=== PATIENT | female | born 1975 | race Caucasian/White ===

== ENCOUNTER → 2018-12-19 15:36 | Outpatient (CLI) | payer SELFPAY ==
[2017-01-20 06:18] VITALS: BMI 19.5
--- NOTE | 2018-12-19 | EMB_PTH ---
PATIENT: RAINER SANDOVAL LOC: [facility] U#:[id number] AGE/SX: 50/F ROOM: RE12/19/[address]: Dr. Julian Carcamo MD : [id number] BED: DIS: SPEC #: [id number] RECD: 12/19/18 15:35 STATUS: ALEJANDRO RENarciso #: [id number] MI: 12/19/18 00:[address]: Julian Caracmo DEPT: SURGICAL PATHOLOGY RECD BY: Brando Lopez ENTERED: 12/20/18 11:06 SP TYPE: ENDOM BX/C DOUGLAS DR: Dr. Gustavo Tellez MD Tissues: Endometrium, NOS Procedures: Surgery Specimen Level IV HEADER OPERATION: Endometrial biopsy PRE-OP DIAGNOSIS: N92.1 TISSUE SUBMITTED: Endometrial biopsy MICROSCOPIC DIAGNOSIS Endometrial biopsy: Proliferative endometrium. SJ:pam 12/21/18 COMMENT Please make reference to previous specimen ([id number]), endometrial curettings with diagnosis of disordered proliferative endometrium and mild chronic endometritis. MICROSCOPIC DESCRIPTION Slides are reviewed. GROSS DESCRIPTION Received in fixative is one container labeled with the patient's name and designated endometrial biopsy. The specimen consists of multiple irregular fragments of light to dark phillips soft tissue that in aggregate measure 2.6 x 2 x 0.1 cm. The specimen is totally submitted in one cassette. / AM:pam 12/20/18 TC:4 CPT: 88782
[2018-12-24 12:00] LABS: HPV Reflexed? NOT INDICATED
== END ==
PROVIDERS: Referring Provider Obstetrics & Gynecology; Visit Provider Obstetrics & Gynecology
DX: Z12.4 Encounter for screening for malignant neoplasm of cervix (principal); N92.1 Excessive and frequent menstruation with irregular cycle
CPT/HCPCS: 87624; 88175; 88305; G0145

== ENCOUNTER → 2018-12-27 09:17 | Outpatient (CLI) | payer SELFPAY ==
--- NOTE | 2018-12-27 09:23 | BI_ITS ---
MAMMOGRAPHY - BILATERAL DIAGNOSTIC REASON FOR EXAM: Female, 43 years old. Painful right breast lump. PERTINENT HISTORY: Non-contributory. Prior biopsy for the right breast lump. TECHNIQUE: Digital bilateral breast zaida (3D mammographic acquisition) in the CC and MLO projections. 2-D mediolateral oblique (MLO) and craniocaudad (CC) views of both breasts were obtained. CAD: Full Field Digital Mammography with Computer Added Detection was performed. COMPARISON: Comparison is made with prior outside examination dated November 04, 2016. FINDINGS: Breast Composition: The breasts are extremely dense, which lowers the sensitivity of mammography. A tissue clip marker is seen in the mid medial anterior aspect of the right breast. No suspicious mass or microcalcification is seen. No other significant abnormalities are identified. There has been no significant change since the prior study. BI/DIAG MAMM W/CAD, BILAT IMPRESSION: Stable bilateral diagnostic mammogram. With the patient's history of a palpable abnormality in the right breast, correlation with ultrasound is recommended. ASSESSMENT CATEGORY: BIRADS Category 0: Incomplete. Need additional imaging evaluation. A letter regarding these results will be sent to the patient by the facility within 30 days. Approximately 10% of breast cancers are not detected by mammography. A normal mammogram should not delay biopsy of a clinically suspicious abnormality. Electronically Signed: Devan Valentin, at 11:21 EDT , Service support ,
--- NOTE | 2018-12-27 09:24 | US_ITS ---
STUDY: ULTRASOUND BREAST - RIGHT REASON FOR EXAM: Female, 43 years old. Palpable lump in the right breast. TECHNIQUE: Axial and longitudinal images of the RIGHT breast were performed with a high resolution ultrasound transducer. COMPARISON: Comparison is made with prior mammogram done earlier today. FINDINGS: RIGHT Breast: There is a 9 mm x 8 mm x 4 mm hypoechoic solid nodule at the 12:00 position of the breast by 1 cm from the nipple. A tissue clip marker is seen within it. Adjacent to this, there is a 1.3 cm x 1.4 cm x 0.4 cm septated cyst. US/Breast Limited Unilateral IMPRESSION: 1.3 cm x 1.4 cm x 0.4 cm septated cyst at the 12:00 position the breast at 1 cm from nipple. This is just adjacent to the previously biopsied nodule. ASSESSMENT CATEGORY: BIRADS Category 2: Benign. A letter regarding these results will be sent to the patient by the facility within 30 days. Electronically Signed: Devan Valentin, at 11:23 EDT , Service support ,
== END ==
PROVIDERS: Family Provider Family Medicine; PCP Family Medicine; Referring Provider Obstetrics & Gynecology; Visit Provider Obstetrics & Gynecology
DX: N64.4 Mastodynia (principal)
CPT/HCPCS: 76642; 77062; 77066; G0279

== ENCOUNTER → 2019-02-14 12:48 | Outpatient (CLI) | payer SELFPAY ==
[2019-01-30 08:48] VITALS: BMI 20.2
--- NOTE | 2019-02-14 12:52 | ECHOD_ITS ---
Reason For Study: ARRHYTHMIA Procedure This was a 2D Doppler, Color Flow transthoracic echocardiogram. Exam performed in department. Left Ventricle Normal LV size. Left ventricular systolic function is normal. The estimated ejection fraction is 55 %. Normal diastology for age. No regional wall motion abnormalities noted. Right Ventricle Normal RV size. Normal systolic function. Atria Normal left atrium. Normal right atrium. Mitral Valve Normal mitral valve. Trivial eccentric mitral valve insufficiency. Tricuspid Valve Normal tricuspid valve. Mild tricuspid valve insufficiency. Aortic Valve Normal aortic valve. Pulmonic Valve Normal pulmonic valve. Great Vessels Normal aortic root. The pulmonary artery is normal size. Normal inferior vena cava. Pericardium/Pleural No pericardial effusion. MMode/2D Measurements & Calculations LVIDd: 4.5 cm IVSd: 0.56 cm Ao root diam: 2.6 cm LVIDs: 3.2 cm LVPWd: 0.59 cm RVDd: 3.3 cm FS: 27.5 % LAV(MOD-bp): 30.7 ml LVAd ap4: 23.4 cm2 SV(MOD-sp4): 38.2 ml LAV(MOD-bp) Indexed: 20.5 ml/m2 EDV(MOD-sp4): 67.1 ml LAV(MOD-sp2): 20.1 ml EDV(sp4-el): 68.1 ml LAV(MOD-sp4): 39.8 ml LVAs ap4: 14.2 cm2 ESV(MOD-sp4): 28.8 ml ESV(sp4-el): 29.1 ml EF(MOD-sp4): 57.0 % EF(sp4-el): 57.3 % SV(sp4-el): 39.0 ml LA A4 area: 15.1 cm2 LA dimension(2D): 2.9 cm RA A4 area: 12.5 cm2 Time Measurements MV dec time: 0.21 sec Doppler Measurements & Calculations MV E max mil: 91.0 cm/sec Lat Peak E' Mil: 15.8 cm/sec Med Peak E' Mil: 14.3 cm/sec MV A max mil: 51.4 cm/sec E/E' lat: 5.8 E/E' med: 6.4 MV E/A: 1.8 Ao V2 max: 99.9 cm/sec LV V1 max: 92.4 cm/sec PA V2 max: 77.8 cm/sec Ao max P.0 mmHg LV V1 max P.4 mmHg TR max mil: 219.4 cm/sec TR max P.3 mmHg Interpretation Summary Normal LV size. Left ventricular systolic function is normal. The estimated ejection fraction is 55 %. Normal diastology for age. Trivial eccentric mitral valve insufficiency. Ordering Physician: Don Aguero Referring Physician: IVETTE VILLALOBOS Performed By: Glenis Michel, STEPHANIA, RVT
== END ==
PROVIDERS: Family Provider Family Medicine; PCP Family Medicine; Referring Provider Internal Medicine Cardiovascular Disease; Visit Provider Internal Medicine Cardiovascular Disease
DX: I47.1 Supraventricular tachycardia (principal)
CPT/HCPCS: 93225; 93226; 93306

== ENCOUNTER → 2024-01-16 | Outpatient (CLI) | payer SELFPAY ==
--- NOTE | 2024-01-16 10:02 | ECHOD_ITS ---
Reason For Study: SUPRAVENTRICULAR TACHYCARDIA Procedure This was a 2D Doppler, Color Flow transthoracic echocardiogram. Exam performed in department. Left Ventricle Normal LV size. The estimated ejection fraction is 55 %. Unable to assess diastolic dysfunction. No regional wall motion abnormalities noted. Right Ventricle Normal RV size. Normal systolic function. Atria Normal left atrium. Normal right atrium. No doppler evidence for ASD. Mitral Valve There is no mitral valve stenosis. Trivial mitral valve insufficiency. Tricuspid Valve There is no tricuspid stenosis. Trivial tricuspid valve insufficiency. Pulmonary artery systolic pressure is 20 mmHg. Aortic Valve Trisinus/trileaflet aortic valve. There is no aortic stenosis. No aortic valve insufficiency. Pulmonic Valve There is no pulmonic valvular stenosis. No pulmonic valve insufficiency. Great Vessels Normal aortic root. Pericardium/Pleural No pericardial effusion. MMode/2D Measurements & Calculations LVIDd: 4.6 cm IVSd: 0.54 cm LVOT diam: 1.9 cm LVIDs: 2.9 cm LVPWd: 0.58 cm LVOT area: 2.8 cm2 RVDd: 3.1 cm FS: 37.0 % Ao root diam: 2.7 cm LAV(MOD-bp): 35.3 ml LVAd ap4: 21.0 cm2 LAV(MOD-bp) Indexed: 22.6 ml/m2 LVLd ap4: 6.4 cm LAV(MOD-sp2): 44.0 ml EDV(MOD-sp4): 56.1 ml LAV(MOD-sp4): 27.0 ml EDV(sp4-el): 58.2 ml LVAs ap4: 12.4 cm2 LVLs ap4: 5.2 cm ESV(MOD-sp4): 24.2 ml ESV(sp4-el): 25.3 ml EF(MOD-sp4): 56.8 % EF(sp4-el): 56.5 % LVAd ap2: 21.8 cm2 SV(MOD-sp4): 31.9 ml SV(MOD-sp2): 39.0 ml LVLd ap2: 6.7 cm EDV(MOD-sp2): 58.8 ml EDV(sp2-el): 60.1 ml LVAs ap2: 10.9 cm2 LVLs ap2: 5.1 cm ESV(MOD-sp2): 19.8 ml ESV(sp2-el): 19.6 ml EF(MOD-sp2): 66.4 % SV(sp4-el): 32.9 ml LA dimension(2D): 3.0 cm LA A4 area: 12.5 cm2 RA A4 area: 8.5 cm2 TAPSE: 2.3 cm Time Measurements MV dec time: 0.21 sec Doppler Measurements & Calculations MV E max morelia: 85.1 cm/sec Ao V2 max: 100.6 cm/sec MV A max morelia: 72.8 cm/sec MV dec slope: 414.3 cm/sec2 Ao max P.0 mmHg MV E/A: 1.2 Ao V2 mean: 73.1 cm/sec Ao mean P.4 mmHg Ao V2 VTI: 22.3 cm AV (velocity ratio): 0.98 NICKI(I,D): 2.8 cm2 NICKI(V,D): 3.0 cm2 LV V1 max: 106.9 cm/sec SV(LVOT): 61.5 ml PA V2 max: 80.6 cm/sec LV V1 max P.6 mmHg PA max PG (full): 1.0 mmHg LV V1 mean P.6 mmHg LV V1 mean: 76.5 cm/sec LV V1 VTI: 21.8 cm TR max morelia: 187.2 cm/sec TR max P.0 mmHg ECHO/Echo Complete Interpretation Summary The estimated ejection fraction is 55 %. Unable to assess diastolic dysfunction. Trivial mitral valve insufficiency. Ordering Physician: Don Aguero Referring Physician: Don Aguero MD Performed By: Rabia Hardin RDCS
== END | disposition home or self-care (01) ==
LOC: PSN 09:59
PROVIDERS: PCP Family Medicine; Referring Provider Internal Medicine Cardiovascular Disease; Visit Provider Internal Medicine Cardiovascular Disease
DX: I47.10 Supraventricular tachycardia, unspecified (principal)
CPT/HCPCS: 93225; 93226; 93306